=== PATIENT | female | born 1985 | race Caucasian/White ===

== ENCOUNTER → 2016-09-14 | Outpatient (CLI) | payer OTHER | LOC: HPND 07:23 | PROVIDERS: ATTEND Obstetrics & Gynecology | DX: O41.8X20 Other specified disorders of amniotic fluid and membranes, second trimester, not applicable or unspecified (principal); O09.812 Supervision of pregnancy resulting from assisted reproductive technology, second trimester; Z3A.21 21 weeks gestation of pregnancy | CPT/HCPCS: 76811; 76825; 76827; 93325 ==

== ENCOUNTER → 2016-10-13 | Outpatient (CLI) | payer OTHER | LOC: HPND 08:06 | PROVIDERS: ATTEND Obstetrics & Gynecology | DX: O35.1XX0 Maternal care for (suspected) chromosomal abnormality in fetus, not applicable or unspecified (principal); O41.8X20 Other specified disorders of amniotic fluid and membranes, second trimester, not applicable or unspecified; O09.812 Supervision of pregnancy resulting from assisted reproductive technology, second trimester; Z3A.00 Weeks of gestation of pregnancy not specified | CPT/HCPCS: 76816 ==

== ENCOUNTER 2017-01-15 22:01 | Emergency (ER) | payer OTHER ==
--- NOTE | 2017-01-15 22:51 | PD ---
HPI Chief Complaint Contractions Date Seen: Jan 15, 2017 Time Seen: 22:47 Travel History International Travel<30 Days: No Contact w/Intl Traveler<30Days: No Known Affected Area: No History of Present Illness HPI 31-year-old who is at 38 weeks and 6 days comes in complaining of contractions since 3 PM today. She had a similar episode yesterday the last several hours and then resolved on its own. Patient denies vaginal discharge, rupture membranes, or vaginal bleeding. Last examination was approximately a week ago and she was 2 cm at that time and 80% effaced. Patient states contractions are occurring approximately every 8-10 minutes episodic and somewhat irregular. She's had a history of in vitro with this . Weeks Gestation: 38 (38.6) Para: 0 : 1 History Past Medical History Medical History: Denies Significant Hx Obstetric History Obstetric History IVF Past Surgical History Narrative Surgical Laparoscopy, hysteroscopy, cone biopsy with a LEEP Family History Family History: Negative Social History Alcohol Use: No Tobacco Use: No Substance Abuse: No Review of Systems Except as stated in HPI: all other systems reviewed are Neg Physical Exam Narrative GENERAL: Well-nourished, well-developed patient. SKIN: Warm and dry. HEAD: Normocephalic and atraumatic. EYES: No scleral icterus. No injection or drainage. ENT: No nasal drainage noted. Mucous membranes pink. Airway patent. NECK: Supple, trachea midline. No JVD. ABDOMEN/GI: Abdomen soft, non-tender, bowel sounds present, no rebound, no guarding Gravid to [37-] weeks size Fundal Height: [-] GENITOURINARY: External Genitalia: intact and normal in appearance BUS glands: [Normal-] Cervix: [-Posterior] Dilatation: [-1-2] Effacement: [80-] Station: [-3-] Presentation: [-] Membranes: [intact ] Uterine Contractions: [Irregular-] FHT's: Category: [1-] Baseline: [140-] Reactive: [-Moderate] Variability: [-Moderate] Decels: [Absent-] EXTREMITIES: No cyanosis or edema. BACK: Nontender without obvious deformity. No CVA tenderness. NEUROLOGICAL: Awake and alert. Motor and sensory grossly within normal limits. Five out of 5 muscle strength in all muscle groups. Normal speech. Data Data Vital Signs Reviewed: Yes [facility] Medical Record Reviewed: Yes Plan 31-year-old who is at 3839 weeks gestation comes in with irregular contractions and false labor. 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
== END 2017-01-15 23:15 | disposition home or self-care (01) ==
LOC: HOBED 22:01
DX: O47.1 False labor at or after 37 completed weeks of gestation (principal); Z3A.38 38 weeks gestation of pregnancy
CPT/HCPCS: 59025

== ENCOUNTER 2017-01-18 17:38 | Inpatient (IN) | payer OTHER ==
[~2017-01-18] VITALS: Ht 170.2 cm; Wt 82.0 kg
[2017-01-18 18:11] VITALS: BP 141/81; PULSE 97
[2017-01-18 18:15] VITALS: RESP 18; TEMP 98.2
[2017-01-18] MEDS ORDERED: LACTATED RINGER'S 1000 ML INJ 1,000 ML IV PRN (19:01)
[2017-01-18] MEDS ORDERED: LACTATED RINGER'S 1000 ML INJ 1,000 ML IV SCH (19:01)
--- NOTE | 2017-01-18 19:01 | PD ---
HPI Chief Complaint ctx, LOF Date Seen: Jan 18, 2017 Time Seen: 18:39 Travel History International Travel<30 Days: No Contact w/Intl Traveler<30Days: No Known Affected Area: No History of Present Illness HPI Pt is a 31y/o @ 39.1wks. She has PNC with Dr. Lozoya. She presents to triage with c/o ctx and LOF which occurred at 12pm. She denies VB. +FM. This is an IVF . Pt has a h/o LEEP. Weeks Gestation: 39 Para: 0 : 1 History Past Medical History Narrative Medical infertility h/o abnormal pap subclinical hypothyroidism Obstetric History Obstetric History G1: current, IVF Past Surgical History Narrative Surgical dx LSC wisdom teeth extraction LEEP Family History Family History: Negative Social History Alcohol Use: No Tobacco Use: No Substance Abuse: No Allergies-Medications Comments none Narrative Medication PNV synthroid 25mcg Review of Systems Except as stated in HPI: all other systems reviewed are Neg Physical Exam Vital Signs Date Time Temp Pulse Resp B/P (MAP) Pulse Ox O2 Delivery O2 Flow Rate FiO2 01/18/17 18:15 98.2 18 01/18/17 18:11 97 141/81 (101) Narrative General: well developed, well nourished, no acute distress HEENT: normocephalic atraumatic, extraocular movements intact, neck supple Abdomen: soft, gravid, nontender, nondistended Uterus: fundus term Extremities: full range of motion, no pedal edema, no calf tenderness Skin: normal coloration, no rashes, no suspicious skin lesions noted Neurologic: cranial nerves 2-12 grossly intact, normal muscle tone, normal gait Psychiatric: normal mood and affect, appropriate FHTs: 140s, +accels, no decels, moderate variability, reactive [place]: irregular ctx Cvx: 5/80/0 Data Data Vital Signs Reviewed: Yes Orders Orders Vital Signs (Adult) .ON ADMISSION (01/18/17 17:45) ^ Labor Status (01/18/17 17:45) ^ Non Stress Test (01/18/17 17:45) Group B Strep: Negative MDM Plan 31y/o G1 @ 39.1wks with labor and SROM. -- admit to L&D -- CLD, epidural/tolliver PRN -- no augmentation at this time -- GBS neg Dr. Aguilar (nutrition faculty member) notified of pt status and agrees with POC. He will assume care of the pt. Courtesy orders placed. Diagnosis Diagnosis: Primary Impression: 39 weeks gestation of Additional Impressions: Amniotic fluid leaking Uterine contractions during Monica Reynoso MD Jan 18, 2017 19:01
[2017-01-18 19:15] VITALS: RESP 18
[2017-01-18] MEDS ORDERED: OXYTOCIN 30 UNITS-500ML PREMIX 500 ML IV ONE (19:15)
[2017-01-18] MEDS ORDERED: LIDOCAINE HCL 1% 50 ML VIAL INFIL PRN (19:15)
[2017-01-18] MEDS ORDERED: LIDOCAINE HCL 1% 50 ML VIAL I-DERMAL PRN (19:15)
[2017-01-18] MEDS ORDERED: SODIUM CHLORID 0.9% 500 ML INJ 500 ML IV PRN (19:15)
[2017-01-18] MEDS ORDERED: ONDANSETRON HCL 4 MG/2 ML VIAL IV PUSH PRN (19:15)
[2017-01-18] MEDS ORDERED: MINERAL OIL 10 ML VIAL TOPICAL PRN (19:15)
[2017-01-18] MEDS ORDERED: SODIUM CHLOR 0.9% 1000 ML INJ 1,000 ML IV PRN (19:21)
[2017-01-18 20:00] VITALS: RESP 18
[2017-01-18 20:32] VITALS: BP 124/65; PULSE 86; RESP 18
[2017-01-18 20:45] VITALS: TEMP 98.4
[2017-01-18 21:04] LABS: AUTOMATED NEUTROPHIL # 9.1 TH/MM3 (1.8-7.7); BASOPHIL % 0.3 % (0.0-2.0); EOSINOPHIL # 0.1 TH/MM3 (0-0.4); EOSINOPHIL % 0.5 % (0.0-4.0); HEMATOCRIT 33.7 % (35.0-46.0); HEMO FLAGS DIFF FINAL; LYMPHOCYTE # 2.8 TH/MM3 (1.0-4.8); MEAN CELL VOLUME 87.5 FL (80.0-100.0); MEAN CORPUSCULAR HEMOGLOBIN 29.3 PG (27.0-34.0); MEAN CORPUSCULAR HGB CONC 33.5 % (32.0-36.0); MONO % 5.4 % (0.0-8.0); NEUT % 71.8 % (16.0-70.0); PLATELET COUNT 273 TH/MM3 (150-450); RED BLOOD COUNT 3.85 MIL/MM3 (4.00-5.30); RED CELL DISTRIBUTION WIDTH 13.7 % (11.6-17.2); WHITE BLOOD COUNT 12.6 TH/MM3 (4.0-11.0)
[2017-01-18 21:09] LABS: BACTERIA, URINE RARE /hpf; BLOOD, URINE NEG (NEG); COMMENT (UR) CULT NOT INDICATED; CULTURE IF INDICATED CULT NOT INDICATED; GLUCOSE,URINE NEG (NEG); KETONE, URINE NEG (NEG); NITRITE,URINE NEG (NEG); PH, URINE 6.5 (5.0-8.5); SQUAMOUS EPITHELIAL CELL URINE 3 /hpf (0-5); URINE COLOR YELLOW (YELLW/STRAW)
[2017-01-19] VITALS (72 sets, daily range): BP systolic 100–143; BP diastolic 54–126; PULSE 71–197; RESP 16–20; TEMP 97.5–98.3
[2017-01-19] MEDS ORDERED: OXYTOCIN 30 UNITS/NS 500ML PREMIX IV SCH (01:15)
[2017-01-19] MEDS ORDERED: NO SYSTEM NARCOTICS PRN (03:30)
[2017-01-19] MEDS ORDERED: DO NOT ADMINISTER ANTICOAGULANTS PRN (03:30)
[2017-01-19] MEDS ORDERED: fentaNYL 2MCG-BUPIV 0.125% 100 ML EPIDURAL SCH (03:30)
[2017-01-19] MEDS ORDERED: fentaNYL 2MCG-BUPIV 0.125% INJ 100 ML ONE (03:32)
[2017-01-19] MEDS ORDERED: ePHEDrine/NS 25 MG/5 ML SYR ONE (03:45)
[2017-01-19] MEDS ORDERED: BUPIVACAINE HCL PF 0.25% 10 ML VIAL ONE (03:45)
[2017-01-19] MEDS ORDERED: ePHEDrine/NS 25 MG/5 ML SYR IV PUSH PRN (05:15)
--- NOTE | 2017-01-19 06:19 | HHI.PR ---
PMP CERTIFIED PROJECT MANAGER Note Note S: Patient doing well, comfortable with epidural, "tired" O: : 7 cm/80%/-1. Ruptured fore bag, clear fluid, head palpable, IUPC placed FHTs: 130s, moderate variability, accelerations present, no decelerations. TOCO: Contractions every 2-3 minutes A/P: 31-year-old G1 at 39 weeks and 2 days by IVF dating here today for labor, she was confirmed ruptured by the hospitalist on admission with positive amnisure 1, IUP: cat 1 tracing - cephalic, GBS neg, EFW 7.5lbs, posterior placenta 2. Labor: Slow change, active labor now, ruptured fore bag now, IUPC placed, pit at 2, titrate pit. Discussed criteria for arrest of dilation with the patient, she is aware. - Epidural working 3. VZV non immune: discuss vaccine 4. Elevated BPs: were x 2 on arrival, mild range, no sn/sx of PREC, BPs since have been normotensive. 5. Hypothyroid: continue home Synthroid 25mcg qd. Oliver Aguilar MD Jan 19, 2017 06:19
[2017-01-19] MEDS ORDERED: IBUP-232 PO (07:07)
--- NOTE | 2017-01-19 07:08 | HHI.DCPOC ---
Discharge Care Plan Diagnosis: (1) 39 weeks gestation of (2) Normal vaginal delivery (3) Maternal varicella, non-immune Your Health Problems Are: Vaginal delivery Report Symptoms to Your Doctor -Temperature above 100.5 degrees -Redness, of incision or excessive or foul smelling drainage -Unusual pain or calf pain -Increased vaginal bleeding -Painful or difficulty urinating -Feelings of extreme sadness or anxiety after 2 weeks Goals to Promote Your Health * To prevent worsening of your condition and complications * To maintain your health at the optimal level Directions to Meet Your Goals Take your medications as prescribed Follow your dietary instruction Follow activity as directed Ensure plenty of rest for recovery Drink fluids for hydration Keep your appointments as scheduled Take your immunizations and boosters as scheduled If your symptoms worsen call your PCP, if no PCP go to Urgent Care Center or Emergency Room Smoking is Dangerous to Your Health. Avoid second hand smoke Call the 24-hour crisis hotline for domestic abuse at Oliver Aguilar MD Jan 19, 2017 07:08
[2017-01-19] MEDS ORDERED: ZOLPIDEM TARTRATE 5 MG TAB PO PRN (07:30)
[2017-01-19] MEDS ORDERED: ONDANSETRON ODT 4 MG TAB PO PRN (07:30)
[2017-01-19] MEDS ORDERED: ALUMINUM/MAGNESIUM/SIMETH 30 ML CUP PO PRN (07:30)
[2017-01-19] MEDS ORDERED: DOCUSATE SODIUM 50 MG/SENNA 8.6 MG TAB PO PRN (07:30)
[2017-01-19] MEDS ORDERED: BENZOCAINE 20% TOPICAL SPRAY 60 ML CAN TOPICAL PRN (07:30)
[2017-01-19] MEDS ORDERED: SODIUM CHLORIDE 0.9% FLUSH 10 ML FLUSH IV FLUSH PRN (07:30)
[2017-01-19] MEDS ORDERED: oxyCODONE/ACETAMINOPHEN 5 MG/325 MG TAB PO PRN ×2 (07:30)
[2017-01-19] MEDS ORDERED: WITCH HAZEL 50%/GLYCERIN 12.5% 40 PAD JAR TOPICAL PRN (07:30)
[2017-01-19] MEDS ORDERED: ACETAMINOPHEN 325 MG TAB PO PRN (07:30)
[2017-01-19] MEDS ORDERED: OXYTOCIN 30 UNITS-500ML PREMIX 500 ML IV SCH (07:30)
--- NOTE | 2017-01-19 07:37 | PD.OB.DELI ---
Weeks gestation: 39 Gest age assessed date: Jan 19, 2017 Gest age assessed time: 05:00 Pt started active labor?: No Medical induction of labor?: No Artificial rupture of membrane: No Artificial ROM date: Jan 18, 2017 (1200) Anesthesia: Epidural Episiotomy: None Vaginal Delivery: Normal, Spontaneous Presentation: Occiput anterior, Vertex Nuchal Cord: None Delayed cord clamping (45 sec): Yes Shoulder Dystocia: Other (none) Infant: Female, Single Delivery date: Jan 19, 2017 Delivery time: 07:19 One Minute : 8 Five Minute : 9 Placenta: Spontaneous delivery, Intact, 3 vessel cord, Other (deliverd at 722) Laceration: 2 deg Repair: Chromic running Estimated blood loss: 300 Additional Information Patient presented yesterday afternoon with leakage of fluid, she was confirmed ruptured with a amnisure test, she progressed on her own to approximately 6cm was started on Pitocin, she received an epidural, overnight she did not change from 11 PM when she was 6 cm per nursing, on arrival this morning she had a fore bag that i ruptured and an IUPC was placed, she rapidly progressed to complete, with reassuring heart tones. Nursing pushed with the patient for short period of time and I was called when ready for delivery, with a supported perineum she pushed and delivered the head, it was allowed to restitue naturally, with gentle downward and upward guidance the anterior and posterior shoulders were delivered respectively, followed by the torso and lower extremities with ease. The infant had spontaneous cry was placed on the mom's abdomen, cord was clamped and cut, and at this time arrived and relieved me, the perineum was inspected and repaired as above, uterus was firm with minimal bleeding, and the patient was left in the birthing suite in stable condition. Oliver Aguilar MD Jan 19, 2017 07:37
[2017-01-19] MEDS: IBUPROFEN 800 MG TAB PO PRN ×3 (08:02→23:51)
[2017-01-19] MEDS: LEVOTHYROXINE SODIUM 25 MCG TAB PO SCH (08:28)
[2017-01-19] MEDS ORDERED: SODIUM CHLORIDE 0.9% FLUSH 10 ML FLUSH IV FLUSH SCH (09:00)
[2017-01-19] MEDS ORDERED: DIPHTH/TETANUS/ACEL PERTUSSIS (BOOSTER) 0.5 ML VIAL/PFS IM ONE (16:00)
[2017-01-19] MEDS ORDERED: MEASLES, MUMPS, RUBELLA VACCINE 0.5 ML VIAL SQ ONE (16:00)
[2017-01-20] MEDS: LEVOTHYROXINE SODIUM 25 MCG TAB PO SCH (06:49)
--- NOTE | 2017-01-20 08:13 | HHI.OB ---
Subjective Post Day: 1 Remarks s/p of healthy female Objective Vitals/I&O Vital Signs Date Time Temp Pulse Resp B/P (MAP) Pulse Ox O2 Delivery O2 Flow Rate FiO2 01/19/17 20:20 98.1 90 18 112/64 (80) 01/19/17 10:10 97.5 18 01/19/17 10:10 80 112/84 (93) 01/19/17 09:00 88 109/82 (91) 01/19/17 08:55 18 01/19/17 08:45 87 120/60 (80) 01/19/17 08:40 16 01/19/17 08:30 91 117/72 (87) 01/19/17 08:25 98.3 01/19/17 08:25 16 01/19/17 08:15 92 121/70 (87) Objective Remarks GENERAL: Well-nourished, well-developed patient. CARDIOVASCULAR: Regular rate and rhythm without murmurs, gallops, or rubs. RESPIRATORY: Breath sounds equal bilaterally. No accessory muscle use. ABDOMEN/GI: Abdomen soft, non-tender. Fundus: Firm, non-tender at umbilicus. GENITOURINARY: Light bleeding. EXTREMITIES: No cyanosis or edema, non-tender, without signs of DVT. Medications and IVs Current Medications Medications (Trade) Dose Ordered Sig/Joey Route Start Time Stop Time Status Last Admin (Synthroid) 25 mcg DAILY@0600 PO 01/19/17 06:15 01/20/17 06:49 (NS Flush) 2 ml BID IV FLUSH 01/19/17 09:00 (NS Flush) 2 ml UNSCH PRN IV FLUSH 01/19/17 07:30 (Tylenol) 650 mg Q4H PRN PO 01/19/17 07:30 (Motrin) 800 mg Q8H PRN PO 01/19/17 07:30 01/19/17 23:51 (Percocet 5-325 Mg) 1 tab Q4H PRN PO 01/19/17 07:30 01/19/17 16:02 (Percocet 5-325 Mg) 2 tab Q4H PRN PO 01/19/17 07:30 (Americaine 20% Top Spr) 1 spray Q4H PRN TOPICAL 01/19/17 07:30 (Tucks Pads) 1 applic QID PRN TOPICAL 01/19/17 07:30 (Carli-Colace) 2 tab Q12H PRN PO 01/19/17 07:30 (Ambien) 5 mg HS PRN PO 01/19/17 07:30 (Mag-Al Plus Susp Liq) 15 ml Q8H PRN PO 01/19/17 07:30 (Zofran Odt) 4 mg Q6H PRN PO 01/19/17 07:30 Assessment/Plan Problem List: (1) (spontaneous vaginal delivery) ICD Codes: O80 - Encounter for full-term uncomplicated delivery Status: Acute Assessment and Plan PPD#1 routine supportive care if infant cleared for d/c ok to send home later today reviewed care instructions Discharge Planning routine Em Lozoya MD Jan 20, 2017 08:13
[2017-01-20] MEDS: IBUPROFEN 800 MG TAB PO PRN (08:50)
== END 2017-01-20 14:10 | disposition home or self-care (01) | DRG 775 ==
LOC: HOBED 17:38 → H2EA 19:03 → H1EA 01-19 09:31
PROVIDERS: ADMIT Obstetrics & Gynecology; ATTEND Obstetrics & Gynecology
PROC: 0KQM0ZZ Repair Perineum Muscle, Open Approach (ICD-10-PCS; principal; 2017-01-18)
PROC: 10E0XZZ Delivery of Products of Conception, External Approach (ICD-10-PCS; 2017-01-18)
PROC: 3E0R3BZ Introduction of Anesthetic Agent into Spinal Canal, Percutaneous Approach (ICD-10-PCS; 2017-01-18)
PROC: 00HU33Z Insertion of Infusion Device into Spinal Canal, Percutaneous Approach (ICD-10-PCS; 2017-01-18)
PROC: 3E033VJ Introduction of Other Hormone into Peripheral Vein, Percutaneous Approach (ICD-10-PCS; 2017-01-18)
DX: O70.1 Second degree perineal laceration during delivery (principal); Z37.0 Single live birth; E03.9 Hypothyroidism, unspecified; O99.284 Endocrine, nutritional and metabolic diseases complicating childbirth; Z3A.39 39 weeks gestation of pregnancy
CPT/HCPCS: 59025; 80307; 81001; 84112; 85025; 86850; 86900; 86901; 90715; 99285; J2590; J3010; J7120